=== PATIENT | female | born 1960 | race Caucasian/White ===

== ENCOUNTER 2018-01-16 11:15 | Day surgery (SDC) | payer OTHER ==
[2018-01-16 13:27] VITALS: BMI 24.4
[2018-01-16 13:54] VITALS: TEMP 97.6
[2018-01-16 14:04] VITALS: PULSE 60
[2018-01-16 15:18] VITALS: BP 119/70
--- NOTE | 2018-01-18 15:26 | PATH ---
Surgical Pathology Report Patient Name: LAST PHILLIPS [facility]. Rec. #: [id number] /Age/Gender: 1960 (Age: 57) / F Account: [id number] Location: U-ENDOSCOPY Taken: 01/16/2018 Received: 01/17/2018 Reported: 01/18/2018 Physicians: Siddharth Appiah D.O. Specimen(s) Received BX BODY/ANGULARIS Clinical History Stool positive for H. Pylori Postoperative diagnosis: Gastritis Final Diagnosis GASTRIC BODY/ANGULARIS, BIOPSY: GASTRIC MUCOSA WITH ACTIVE CHRONIC GASTRITIS. 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 Electronically Signed Mague Grayson M.D. Gross Description Received in formalin, labeled "biopsy body/angularis" are 5 simpson, irregular portions of soft tissue ranging from 0.2-0.5 cm. in greatest dimension. The specimens are submitted in toto in one cassette. /01/17/2018 saudi/01/17/2018
== END 2018-01-16 14:45 | disposition home or self-care (01) ==
LOC: JASU-ENDO 11:15
PROVIDERS: ATTEND Internal Medicine Gastroenterology
PROC: 0DB68ZX Excision of Stomach, Via Natural or Artificial Opening Endoscopic, Diagnostic (ICD-10-PCS; principal; 2018-01-16 12:15)
DX: K29.70 Gastritis, unspecified, without bleeding (principal)
CPT/HCPCS: 88305-TC; 88342-TC

== ENCOUNTER 2019-10-10 11:15 | Day surgery (SDC) | payer OTHER ==
[2019-10-10 12:06] VITALS: BMI 26.7
[2019-10-10 14:07] VITALS: TEMP 97.7
[2019-10-10 14:29] VITALS: BP 112/66; PULSE 61
--- NOTE | 2019-10-11 18:01 | PATH ---
Surgical Pathology Report Patient Name: LAST PHILLIPS [facility]. Rec. #: [id number] /Age/Gender: 1960 (Age: 59) / F Account: [id number] Location: [facility]-ENDOSCOPY Taken: 10/10/2019 Received: 10/10/2019 Reported: 10/11/2019 Physicians: Siddharth Appiah D.O. Specimen(s) Received TRANSVERSE COLON POLYP Clinical History Abdominal pain, screening colonoscopy Postoperative diagnosis: Colon polyps, hemorrhoids Final Diagnosis TRANSVERSE COLON, POLYP, BIOPSY: HYPERPLASTIC POLYP. Electronically Signed Griselda Knox M.D. Gross Description Received in formalin, labeled "transverse colon polyp biopsy" are 2 simpson, irregular portions of soft tissue averaging 0.2 cm. in greatest dimension. The specimens are submitted in toto in one cassette. /10/10/2019 saudi/10/10/2019
== END 2019-10-10 14:35 | disposition home or self-care (01) ==
LOC: JASU-ENDO 11:15
PROVIDERS: ATTEND Internal Medicine Gastroenterology
PROC: 0DBL8ZX Excision of Transverse Colon, Via Natural or Artificial Opening Endoscopic, Diagnostic (ICD-10-PCS; principal; 2019-10-10 12:30)
DX: R10.9 Unspecified abdominal pain (principal); K64.8 Other hemorrhoids; D12.3 Benign neoplasm of transverse colon; K63.89 Other specified diseases of intestine
CPT/HCPCS: 88305-TC

== ENCOUNTER 2020-03-13 07:00 | Day surgery (SDC) | payer OTHER ==
[2020-03-12 11:43] VITALS: BMI 27.4
[2020-03-13] MEDS ORDERED: DEXAMETHASONE SOD PHOSPHATE/PF 10 MG/ML SDV ONE (07:20)
[2020-03-13] MEDS ORDERED: LIDOCAINE HCL/PF 1% SDV 5ML VIAL ONE (07:20)
[2020-03-13] MEDS ORDERED: TRIAMCINOLONE ACET 40MG/1ML VIAL ONE (09:34)
[2020-03-13] MEDS ORDERED: BUPIVACAINE HCL 50 ML ONE (09:34)
[2020-03-13] MEDS ORDERED: TRIAMCINOLONE ACET 40MG/1ML VIAL IJ ONE (09:44)
[2020-03-13] MEDS ORDERED: BUPIVACAINE HCL/PF 0.5% (5 MG/ML) 30 ML VIAL IJ ONE (09:44)
[2020-03-13] MEDS ORDERED: LIDOCAINE HCL 1% PRESERVATIVE FREE - 30ML VIAL IJ ONE (09:44)
[2020-03-13] MEDS ORDERED: IOHEXOL 180 MG/1 ML ML IJ ONE (09:45)
[2020-03-13 13:43] VITALS: BP 112/70; PULSE 68; TEMP 97.8
--- NOTE | 2020-03-25 12:54 | PROC ---
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 The patient was then taken to the procedure room and positioned prone on the procedure table. Time out was performed. The region overlying the right sacroiliac joint was identified using fluorosco py. The skin was prepped and draped in the usual sterile fashion. The skin and soft tissues were anesthetized using 2% lidocaine. Using fluoroscopic guidance, a 22 gauge 3.5 inch spinal needle was then introduced to the inferior aspect of the posterior Right sacroiliac joint. Omnipaque 240 confirmed appropriate needle placement. 1 cc .5% bupivacaine and 1 cc Kenalog was then injected. The Same procedure was repeated on the Left. The patient tolerated the procedure well and there were no complications. The patient was taken to the post procedure recovery area in good condition. Vital signs remained stable before, during, and after the procedure. The patient was given oral and written follow-up instructions. The patient was given a follow up appointment with me in the near future. Lane Chiu DO
== END 2020-03-13 11:45 | disposition home or self-care (01) ==
LOC: JASU-SURG 07:00
PROVIDERS: ATTEND Pain Medicine Pain Medicine
PROC: 3E0T3BZ Introduction of Anesthetic Agent into Peripheral Nerves and Plexi, Percutaneous Approach (ICD-10-PCS; 2020-03-13)
PROC: 3E0T33Z Introduction of Anti-inflammatory into Peripheral Nerves and Plexi, Percutaneous Approach (ICD-10-PCS; principal; 2020-03-13 09:00)
DX: M53.3 Sacrococcygeal disorders, not elsewhere classified (principal); I10 Essential (primary) hypertension; E78.5 Hyperlipidemia, unspecified; J45.909 Unspecified asthma, uncomplicated; M79.7 Fibromyalgia
CPT/HCPCS: 76000-TC-FY

== ENCOUNTER 2020-10-30 04:22 | Day surgery (SDC) | payer OTHER ==
[2020-10-29 13:58] VITALS: BMI 28.8
[2020-10-30] MEDS ORDERED: BUPIVACAINE HCL/PF 0.75% 10 ML VIAL CAUD ONE (09:35)
[2020-10-30] MEDS ORDERED: LIDOCAINE 1% P/F 10 MG/ML VIAL PNB ONE ×2 (09:37)
[2020-10-30 10:11] VITALS: BP 121/66; PULSE 58; TEMP 98.2
== END 2020-10-30 10:30 | disposition home or self-care (01) ==
LOC: JASU-SURG 04:22
PROVIDERS: ATTEND Pain Medicine Pain Medicine
PROC: BR16YZZ Fluoroscopy of Lumbar Facet Joint(s) using Other Contrast (ICD-10-PCS; 2020-10-30)
PROC: 3E0T3BZ Introduction of Anesthetic Agent into Peripheral Nerves and Plexi, Percutaneous Approach (ICD-10-PCS; principal; 2020-10-30 15:30)
DX: M47.816 Spondylosis without myelopathy or radiculopathy, lumbar region (principal)
CPT/HCPCS: 76000-TC-FY

== ENCOUNTER 2024-02-02 04:16 | Day surgery (SDC) | payer OTHER ==
[2024-01-26 14:28] VITALS: BMI 26.5
[2024-02-02] MEDS ORDERED: LIDOCAINE HCL/PF 2% SDV 5ML VIAL ONE (07:07)
[2024-02-02] MEDS ORDERED: LIDOCAINE HCL/PF 1% SDV 5ML VIAL ONE (07:08)
[2024-02-02] MEDS ORDERED: BUPIVACAINE HCL/PF 0.75% 10 ML VIAL ONE (07:08)
[2024-02-02] MEDS ORDERED: DEXAMETHASONE SOD PHOSPHATE 10 MG/1 ML VIAL ONE (07:08)
[2024-02-02 08:29] VITALS: RESP 16
[2024-02-02] MEDS ORDERED: ACETAMINOPHEN 500 MG TABLET (FP) PO PRN (09:53)
[2024-02-02 11:20] VITALS: BP 117/65; PULSE 67; TEMP 98
== END 2024-02-02 11:52 | disposition home or self-care (01) ==
LOC: JASU-SURG 04:16
PROVIDERS: ATTEND Pain Medicine Pain Medicine
PROC: 3E0R3BZ Introduction of Anesthetic Agent into Spinal Canal, Percutaneous Approach (ICD-10-PCS; 2024-02-02)
PROC: 3E0R33Z Introduction of Anti-inflammatory into Spinal Canal, Percutaneous Approach (ICD-10-PCS; principal; 2024-02-02 09:30)
DX: M48.061 Spinal stenosis, lumbar region without neurogenic claudication (principal); M54.16 Radiculopathy, lumbar region
CPT/HCPCS: 76000-TC-FY; J1100

== ENCOUNTER 2024-03-07 04:15 | Day surgery (SDC) | payer OTHER ==
[2024-03-05 16:45] VITALS: BMI 26.5
[2024-03-07] MEDS ORDERED: LIDOCAINE HCL/PF 1% SDV 5ML VIAL ONE (07:10)
[2024-03-07] MEDS ORDERED: BUPIVACAINE HCL/PF 0.75% 10 ML VIAL ONE (07:10)
[2024-03-07] MEDS: BUPIVACAINE HCL/PF 0.75% 10 ML VIAL NR ONE (08:42)
[2024-03-07] MEDS: LIDOCAINE HCL 1% PRESERVATIVE FREE - 30ML VIAL IJ ONE (08:45)
[2024-03-07 10:21] VITALS: BP 130/58; PULSE 64; RESP 18; TEMP 97.8
[2024-03-07] MEDS ORDERED: ACETAMINOPHEN 500 MG TABLET (FP) PO PRN (15:23)
== END 2024-03-07 10:50 | disposition home or self-care (01) ==
LOC: JASU-SURG 04:15
PROVIDERS: ATTEND Pain Medicine Pain Medicine
PROC: 3E0T33Z Introduction of Anti-inflammatory into Peripheral Nerves and Plexi, Percutaneous Approach (ICD-10-PCS; 2024-03-07)
PROC: 3E0T3BZ Introduction of Anesthetic Agent into Peripheral Nerves and Plexi, Percutaneous Approach (ICD-10-PCS; principal; 2024-03-07 08:45)
DX: M47.816 Spondylosis without myelopathy or radiculopathy, lumbar region (principal)
CPT/HCPCS: 76000-TC-FY